=== PATIENT | female | born 1980 | race Caucasian/White ===

== ENCOUNTER 2017-01-22 09:18 | Emergency (ER) | payer SELFPAY ==
[~2017-01-22] VITALS: Ht 165.1 cm; Wt 100.0 kg
[~2017-01-22 09:18] MED LIST: NAPROSYN500 MG PO
[2017-01-22] MEDS ORDERED: PERCOCET 5/325M1 TAB PO (10:56)
[2017-01-22 11:45] VITALS: BP 119/70
== END 2017-01-22 11:45 | disposition home or self-care (01) | DRG 563 ==
LOC: ED 09:18
DX: S43.401A Unspecified sprain of right shoulder joint, initial encounter (principal); F17.210 Nicotine dependence, cigarettes, uncomplicated; W18.49XA Other slipping, tripping and stumbling without falling, initial encounter; Y92.512 Supermarket, store or market as the place of occurrence of the external cause

== ENCOUNTER 2017-12-24 11:29 | Emergency (ER) | payer OTHER ==
[~2017-12-24] VITALS: Ht 165.1 cm; Wt 70.0 kg
[~2017-12-24 11:29] MED LIST changes: +PERCOCET 5/325M1 TAB PO
[2017-12-24 12:25] LABS: HEMATOCRIT 42.5 % (37.0-47.0); HEMOGLOBIN 14.6 g/dl (12.0-16.0); IMMATURE GRANULOCYTES 0.4 % (0.0-1.0); MEAN CELL VOLUME 95.1 fL CALC (80.0-100.0); MEAN CORPUSCULAR HGB 32.7 pG CALC (26.0-32.0); MEAN CORPUSCULAR HGB CONC 34.4 g/L CALC (32.0-36.0); NEUT# 7.29 thou/uL (2.00-7.15); RED BLOOD COUNT 4.47 mill/uL (4.20-5.60); URINE BILIRUBIN - DIPSTICK NEGATIVE (NEGATIVE); URINE BLOOD DIPSTICK TRACE-INTACT (NEGATIVE); URINE COLOR YELLOW; URINE GLUCOSE - DIPSTICK NEGATIVE (NEGATIVE); URINE KETONE NEGATIVE (NEGATIVE); URINE LEUK ESTERASE NEGATIVE (NEGATIVE); URINE NITRITE - DIPSTICK NEGATIVE (Negative); URINE PROTEIN - DIPSTICK NEGATIVE (NEG-TRACE); URINE SPECIFIC GRAVITY <=1.005; URINE UROBILINOGEN - DIPSTICK 0.2 E.U./dL (0.2)
[2017-12-24 12:33] LABS: URINE CLARITY SL CLOUDY
[2017-12-24 12:46] LABS: ALBUMIN 3.9 g/dL (3.2-5.0); ALKALINE PHOSPHATASE 107 u/l (38-126); ANION GAP 17 (6-22 (CALC)); BILIRUBIN, TOTAL 0.5 mg/dL (0.0-1.4); BUN 11 mg/dL (7-17); BUN/CREATININE RATIO 17 (12-20 (CALC)); CARBON DIOXIDE 26 mmol/l (22-30); CHLORIDE 105 mmol/l (95-108); CREATININE 0.6 mg/dL (0.5-1.0); GFR > 60 ML/MIN (>=60 (CALC)); GFR FOR AFR.AMER. > 60 ML/MIN (>=60 (CALC)); LIPASE 60 u/l (23-300); POTASSIUM 4.1 mmol/l (3.5-5.1); SGOT/AST 39 u/l (14-36); SGPT/ALT 59 u/l (9-52); SODIUM 144 mmol/l (137-146); TOTAL PROTEIN 6.9 g/dL (6.3-8.2)
[2017-12-24] MEDS ORDERED: LIPITOR20 MG PO (13:11)
[2017-12-24] MEDS ORDERED: Levaquin PO (13:11)
[2017-12-24] MEDS ORDERED: GABAPENTIN100 MG PO (13:11)
[2017-12-24] MEDS ORDERED: ZANAFLEX4 M2 PO (13:12)
[2017-12-24 13:19] VITALS: BP 148/86
== END 2017-12-24 13:19 | disposition home or self-care (01) | DRG 103 ==
LOC: ED 11:29
PROVIDERS: Family Medicine
DX: R51 Headache (principal)

== ENCOUNTER 2018-06-14 12:17 | Emergency (ER) | payer OTHER ==
[~2018-06-14] VITALS: Ht 165.1 cm; Wt 100.0 kg
[~2018-06-14 12:17] MED LIST changes: +GABAPENTIN100 MG PO; +LIPITOR20 MG PO; +Levaquin PO; +ZANAFLEX4 M2 PO
[2018-06-14] MEDS ORDERED: GABAPENTIN300 M2 PO (13:34)
[2018-06-14] MEDS ORDERED: METFORMIN HCL1000 MG PO (13:34)
[2018-06-14] MEDS ORDERED: LISINOPRIL20 M1 PO (13:34)
[2018-06-14] MEDS ORDERED: CRESTOR40 MG PO (13:35)
[2018-06-14] MEDS ORDERED: SIMVASTATIN20 MG PO (13:35)
[2018-06-14] MEDS ORDERED: TRAMADOL HYDROC50 MG PO (14:55)
[2018-06-14 15:08] VITALS: BP 160/99
[2018-06-14] MEDS ORDERED: LORTAB 5/3255 MG PO (15:21)
== END 2018-06-14 15:41 | disposition home or self-care (01) ==
LOC: ED 12:17
DX: S89.92XA Unspecified injury of left lower leg, initial encounter (principal); M25.562 Pain in left knee; W18.39XA Other fall on same level, initial encounter; X50.0XXA Overexertion from strenuous movement or load, initial encounter; Y93.89 Activity, other specified; Y92.230 Patient room in hospital as the place of occurrence of the external cause

== ENCOUNTER 2018-06-22 10:17 | Emergency (ER) | payer MEDICAID ==
[~2018-06-22] VITALS: Ht 165.1 cm; Wt 99.7 kg
[~2018-06-22 10:17] MED LIST changes: +CRESTOR40 MG PO; +GABAPENTIN300 M2 PO; +LISINOPRIL20 M1 PO; +LORTAB 5/3255 MG PO; +METFORMIN HCL1000 MG PO; +SIMVASTATIN20 MG PO; +TRAMADOL HYDROC50 MG PO
[2018-06-22] MEDS ORDERED: HYDROCO/APAP1 TA9 PO (11:26)
[2018-06-22 11:50] VITALS: BP 149/74
== END 2018-06-22 11:50 | disposition home or self-care (01) ==
LOC: ED 10:17
DX: S76.012A Strain of muscle, fascia and tendon of left hip, initial encounter (principal); S76.112A Strain of left quadriceps muscle, fascia and tendon, initial encounter; M25.552 Pain in left hip; M25.562 Pain in left knee; W01.0XXA Fall on same level from slipping, tripping and stumbling without subsequent striking against object, initial encounter; Y93.89 Activity, other specified; Y92.007 Garden or yard of unspecified non-institutional (private) residence as the place of occurrence of the external cause
CPT/HCPCS: L1830

== ENCOUNTER 2018-11-09 10:55 | Emergency (ER) | payer OTHER ==
[~2018-11-09] VITALS: Ht 165.1 cm; Wt 92.3 kg
[~2018-11-09 10:55] MED LIST changes: +HYDROCO/APAP1 TA9 PO
[2018-11-09] MEDS ORDERED: LORTAB 5/3255 MG PO (14:08)
[2018-11-09 14:22] VITALS: BP 141/89
== END 2018-11-09 14:22 | disposition home or self-care (01) ==
LOC: ED 10:55
DX: M54.6 Pain in thoracic spine (principal); M54.2 Cervicalgia; G89.29 Other chronic pain; I10 Essential (primary) hypertension; F17.210 Nicotine dependence, cigarettes, uncomplicated

== ENCOUNTER 2018-11-13 19:33 | Emergency (ER) | payer OTHER ==
[~2018-11-13] VITALS: Ht 165.1 cm; Wt 91.8 kg
[2018-11-13] MEDS ORDERED: CRESTOR40 MG PO (20:18)
[2018-11-13] MEDS ORDERED: METFORMIN500 M2 PO (20:18)
[2018-11-13] MEDS ORDERED: TYLENOL # 31 TA1 PO (20:54)
[2018-11-13] MEDS ORDERED: MOTRIN800 MG PO (20:54)
[2018-11-13 21:00] VITALS: BP 136/84
== END 2018-11-13 21:00 | disposition home or self-care (01) | DRG 563 ==
LOC: ED 19:33
DX: S46.911A Strain of unspecified muscle, fascia and tendon at shoulder and upper arm level, right arm, initial encounter (principal); S60.211A Contusion of right wrist, initial encounter; S20.211A Contusion of right front wall of thorax, initial encounter; I10 Essential (primary) hypertension; F17.200 Nicotine dependence, unspecified, uncomplicated; V49.50XA Passenger injured in collision with unspecified motor vehicles in traffic accident, initial encounter

== ENCOUNTER 2019-01-19 08:01 | Emergency (ER) | payer OTHER ==
[~2019-01-19] VITALS: Ht 165.1 cm; Wt 90.9 kg
[~2019-01-19 08:01] MED LIST changes: +METFORMIN500 M2 PO; +MOTRIN800 MG PO; +TYLENOL # 31 TA1 PO
[2019-01-19 09:05] LABS: ALKALINE PHOSPHATASE 84 u/l (38-126); ANION GAP 14 (6-22 (CALC)); BILIRUBIN, TOTAL 0.4 mg/dL (0.0-1.4); BUN 3 mg/dL (7-17); BUN/CREATININE RATIO 5 (12-20 (CALC)); CARBON DIOXIDE 27 mmol/l (22-30); CHLORIDE 103 mmol/l (95-108); CREATININE 0.5 mg/dL (0.5-1.0); GFR > 60 ML/MIN (>=60 (CALC)); GFR FOR AFR.AMER. > 60 ML/MIN (>=60 (CALC)); SGOT/AST 28 u/l (14-36); SODIUM 140 mmol/l (137-146); TOTAL PROTEIN 6.6 g/dL (6.3-8.2)
[2019-01-19 09:10] LABS: URINE BILIRUBIN - DIPSTICK NEGATIVE (NEGATIVE); URINE BLOOD DIPSTICK TRACE-LYSED (NEGATIVE); URINE COLOR YELLOW; URINE GLUCOSE - DIPSTICK NEGATIVE (NEGATIVE); URINE KETONE NEGATIVE (NEGATIVE); URINE NITRITE - DIPSTICK NEGATIVE (Negative); URINE PROTEIN - DIPSTICK NEGATIVE (NEG-TRACE); URINE SPECIFIC GRAVITY <=1.005; URINE UROBILINOGEN - DIPSTICK 0.2 E.U./dL (0.2)
[2019-01-19 09:11] LABS: URINE LEUK ESTERASE SMALL (NEGATIVE)
[2019-01-19 09:14] LABS: BARBITURATES NEGATIVE (NEGATIVE); COCAINE NEGATIVE (NEGATIVE); METHADONE NEGATIVE (NEGATIVE); OXCYCODONE POSITIVE (NEGATIVE); TETRAHYDROCANNABIONOL POSITIVE (NEGATIVE); TRICYLIC ANTIDEPRESSANTS NEGATIVE (NEGATIVE)
[2019-01-19 09:20] LABS: URINE BACTERIA FEW hpf; URINE RBC 0-2 RBC/hpf (0-5); URINE SQUAMOUS EPITHELIAL CELL MODERATE EPI/hpf (0-FEW); URINE TRICHOMONAS FEW hpf
[2019-01-19] MEDS ORDERED: DICLOFENAC50 MG PO (09:24)
[2019-01-19] MEDS ORDERED: FLEXERIL PO (09:24)
[2019-01-19 09:30] VITALS: BP 156/76
== END 2019-01-19 09:39 | disposition home or self-care (01) ==
LOC: ED 08:01
PROVIDERS: Emergency Medicine
DX: M54.5 Low back pain (principal); G89.29 Other chronic pain; I10 Essential (primary) hypertension; M41.9 Scoliosis, unspecified; F17.200 Nicotine dependence, unspecified, uncomplicated

== ENCOUNTER 2019-03-01 16:11 | Emergency (ER) | payer OTHER ==
[~2019-03-01] VITALS: Ht 165.1 cm; Wt 88.0 kg
[~2019-03-01 16:11] MED LIST changes: +DICLOFENAC50 MG PO; +FLEXERIL PO
[2019-03-01] MEDS ORDERED: BACTRIM DS1 TAB PO (16:31)
[2019-03-01] MEDS ORDERED: CEPHALEXIN500 M1 PO (16:31)
[2019-03-01 17:44] VITALS: BP 139/82
== END 2019-03-01 17:44 | disposition home or self-care (01) | DRG 603 ==
LOC: ED 16:11
PROC: 0H9HXZZ Drainage of Right Upper Leg Skin, External Approach (ICD-10-PCS; principal; 2019-03-01)
DX: L02.415 Cutaneous abscess of right lower limb (principal); I10 Essential (primary) hypertension; F17.210 Nicotine dependence, cigarettes, uncomplicated

== ENCOUNTER 2019-03-03 08:27 | Emergency (ER) | payer OTHER ==
[~2019-03-03] VITALS: Ht 165.1 cm; Wt 88.0 kg
[~2019-03-03 08:27] MED LIST changes: +BACTRIM DS1 TAB PO; +CEPHALEXIN500 M1 PO
[2019-03-03 09:27] VITALS: BP 123/88
== END 2019-03-03 09:30 | disposition home or self-care (01) ==
LOC: ED 08:27
DX: Z48.01 Encounter for change or removal of surgical wound dressing (principal); I10 Essential (primary) hypertension; F17.210 Nicotine dependence, cigarettes, uncomplicated

== ENCOUNTER 2019-03-06 13:29 | Emergency (ER) | payer OTHER ==
[~2019-03-06] VITALS: Ht 165.1 cm; Wt 89.0 kg
[2019-03-06 13:43] VITALS: BP 120/83
== END 2019-03-06 14:50 | disposition home or self-care (01) ==
LOC: ED 13:29
DX: Z48.01 Encounter for change or removal of surgical wound dressing (principal); I10 Essential (primary) hypertension; F17.210 Nicotine dependence, cigarettes, uncomplicated

== ENCOUNTER 2019-04-24 13:11 | Emergency (ER) | payer MEDICAID ==
[~2019-04-24] VITALS: Ht 165.1 cm; Wt 93.0 kg
[2019-04-24 13:15] VITALS: BP 156/74
== END 2019-04-24 15:23 | disposition home or self-care (01) ==
LOC: ED 13:11
DX: G44.209 Tension-type headache, unspecified, not intractable (principal); I10 Essential (primary) hypertension; F17.210 Nicotine dependence, cigarettes, uncomplicated

== ENCOUNTER 2019-05-23 10:53 | Emergency (ER) | payer SELFPAY ==
[~2019-05-23] VITALS: Ht 165.1 cm; Wt 100.0 kg
[2019-05-23 12:20] VITALS: BP 164/96
== END 2019-05-23 12:20 | disposition home or self-care (01) | DRG 552 ==
LOC: ED 10:53
DX: M54.6 Pain in thoracic spine (principal); I10 Essential (primary) hypertension; E78.5 Hyperlipidemia, unspecified; F17.210 Nicotine dependence, cigarettes, uncomplicated

== ENCOUNTER 2019-06-26 15:05 | Observation (INO) | payer MEDICAID ==
[~2019-06-26] VITALS: Ht 165.1 cm; Wt 90.8 kg
[2019-06-26 16:43] LABS: HEMATOCRIT 43.5 % (37.0-47.0); HEMOGLOBIN 14.8 g/dl (12.0-16.0); IMMATURE GRANULOCYTES 0.4 % (0.0-5.0); MEAN CELL VOLUME 91.2 fL CALC (80.0-100.0); NEUT# 6.99 thou/uL (2.00-7.15); RED BLOOD COUNT 4.77 mill/uL (4.20-5.60); RED CELL DISTRI WIDTH 13.7 % (11.5-15.5)
[2019-06-26 17:07] LABS: ALBUMIN 4.3 g/dL (3.2-5.0); ALKALINE PHOSPHATASE 89 u/l (38-126); ANION GAP 13 (6-22 (CALC)); BILIRUBIN, TOTAL 0.4 mg/dL (0.0-1.4); BUN 6 mg/dL (7-17); BUN/CREATININE RATIO 11 (12-20 (CALC)); CARBON DIOXIDE 27 mmol/l (22-30); CHLORIDE 102 mmol/l (95-108); CREATININE 0.5 mg/dL (0.5-1.0); GFR > 60 ML/MIN (>=60 (CALC)); GFR FOR AFR.AMER. > 60 ML/MIN (>=60 (CALC)); SGOT/AST 31 u/l (14-36); SODIUM 138 mmol/l (137-146); TOTAL PROTEIN 7.4 g/dL (6.3-8.2)
[2019-06-26 19:35] VITALS: BP 154/96
[2019-06-27 05:15] VITALS: BP 153/95
[2019-06-27 07:30] VITALS: BP 147/97
[2019-06-27 07:49] VITALS: BP 147/97
[2019-06-27] MEDS ORDERED: SPIRIVA RE2.5 MCG/AC IN (10:36)
[2019-06-27] MEDS ORDERED: ZITHROMAX250 MG PO (10:36)
[2019-06-27] MEDS ORDERED: PREDNISONE10 MG PO (10:36)
== END 2019-06-27 11:30 | disposition home or self-care (01) ==
LOC: ED 15:05 → ED-I 17:00 → ED 18:07 → MS2 18:08
PROVIDERS: Emergency Medicine; ADMIT Internal Medicine; ATTEND Internal Medicine
DX: J20.9 Acute bronchitis, unspecified (principal); I10 Essential (primary) hypertension; E78.5 Hyperlipidemia, unspecified; F17.200 Nicotine dependence, unspecified, uncomplicated; M54.9 Dorsalgia, unspecified; G89.29 Other chronic pain
CPT/HCPCS: G0378; J1650